=== PATIENT | female | born 2000 | race Caucasian/White ===

== ENCOUNTER 2022-06-23 02:04 | Emergency (ER) | payer SELFPAY | END 2022-06-23 02:36 | disposition home or self-care (01) | LOC: CSHERS 02:04 | DX: S00.83XA Contusion of other part of head, initial encounter (principal); S06.0X0A Concussion without loss of consciousness, initial encounter; W22.8XXA Striking against or struck by other objects, initial encounter | CPT/HCPCS: 99283 ==